=== PATIENT | female | born 1965 | race African-American/Black ===

== ENCOUNTER 2025-08-03 01:48 | Inpatient (IN) | payer OTHER, MEDICARE ==
[~2025-08-03] VITALS: Ht 160 cm; Wt 144.2 kg
[2025-08-03 01:50] VITALS: O2SAT 100
[2025-08-03] MEDS: ACETAMINOPHEN 1000MG/100ML 100 ML IV ONE (02:53)
[2025-08-03] MEDS: ONDANSETRON HCL 4MG/2ML INJ IV ONE (02:53)
[2025-08-03] MEDS: MAGNESIUM/ALUMINUM HYDROXIDE/SIMETHICONE 30ML UDC PO ONE (02:53)
[2025-08-03] MEDS: SODIUM CHLORIDE 0.9% 1,000 ML IV ONE (02:54)
[2025-08-03] MEDS: VISCOUS LIDOCAINE 2% 15 ML UDC MM ONE (02:54)
[2025-08-03 03:17] LABS: BASOPHILS % 0.4 % (0.0-2.0); EOSINOPHILS % 0.0 % (0.0-5.0); HEMATOCRIT. 39.5 % (36.0-48.0); HEMOGLOBIN. 12.6 g/dL (12.0-16.0); LYMPHOCYTES % 7.1 % (20.0-50.0); MEAN PLATELET VOLUME 7.7 fl (7.4-10.4); MONOCYTES % 2.7 % (2.0-8.0); NEUTROPHILS % 89.8 % (40.0-76.0); PLATELET 292 x1000/uL (130-400); RED BLOOD CELL COUNT 4.88 mill/uL (4.2-5.4); RED CELL DISTRIBUTION WIDTH 15.7 % (11.6-14.6)
[2025-08-03 03:26] LABS: CREATININE 0.9 mg/dL (0.6-1.0); HCG SCREEN NEGATIVE; UREA NITROGEN BLOOD 14 mg/dL (9-23)
[2025-08-03 03:28] LABS: ASPARTATE AMINOTRANSFERASE 18 IU/L (<34); BILIRUBIN DIRECT 0.2 mg/dL (<=3.0); BILIRUBIN TOTAL 0.8 mg/dL (0.1-1.0); PROTEIN TOTAL 7.7 g/dL (6.0-8.3)
[2025-08-03] MEDS: MORPHINE SULFATE 4 MG/ML INJ (FOR IV/IM USE) IV NR (03:41)
[2025-08-03 03:46] LABS: CLARITY URINE CLOUDY (CLEAR); COLOR URINE YELLOW (YELLOW); GLUCOSE URINE NEGATIVE (NEGATIVE); KETONES URINE NEGATIVE (NEGATIVE); LEUKOCYTE ESTERASE URINE NEGATIVE (NEGATIVE); NITRITE URINE NEGATIVE (NEGATIVE); OCCULT BLOOD URINE NEGATIVE (NEGATIVE); PH URINE 8.0 (4.5-8.0); PROTEIN URINE TRACE (NEGATIVE); SPECIFIC GRAVITY URINE 1.023 (1.005-1.030); UROBILINOGEN URINE 1.0 E.U./dL (0.2-1.0)
[2025-08-03] MEDS: IOHEXOL-300 100 ML BOTTLE ONE (04:30)
[2025-08-03 04:46] LABS: *AMPHETAMINES SCREEN URINE NEGATIVE (NEGATIVE)
[2025-08-03 04:47] LABS: *BARBITURATES SCREEN URINE NEGATIVE (NEGATIVE); *BENZODIAZEPINES SCREEN URINE NEGATIVE (NEGATIVE); *COCAINE SCREEN URINE NEGATIVE (NEGATIVE); CANNABINOID URINE SCREEN PRESUMPTIVE POSITIVE (NEGATIVE); ECSTASY MDMA SCREEN URINE NEGATIVE (NEGATIVE); METHADONE URINE SCREEN NEGATIVE (NEGATIVE); OPIATES URINE SCREEN NEGATIVE (NEGATIVE); PHENCYCLIDINE URINE SCREEN NEGATIVE (NEGATIVE)
[2025-08-03] MEDS ORDERED: HYDRALAZINE 20MG/ML VIAL IV NR (05:00)
[2025-08-03] MEDS ORDERED: VANCOMYCIN 1G PREMIX 200 ML IV ONE (05:00)
[2025-08-03] MEDS: PIPERACILLIN/TAZO 3.375G/50ML 50 ML IV ONE (05:28)
[2025-08-03 05:45] VITALS: BP 113/77; PULSE 63; RESP 20; TEMP 36.9; TEMP 36.974; O2SAT 98
[2025-08-03 05:45] LABS: BACTERIA URINE 2+; RBC URINE NONE SEEN /hpf (0-2); SQUAMOUS EPITHELIAL CELL URINE 3+ /lpf (RARE/1+); WBC URINE 0-2 /hpf (0-2)
[2025-08-03] MEDS ORDERED: GABA800T97 PO (06:37)
[2025-08-03] MEDS ORDERED: ATOR40TA70 PO (06:37)
[2025-08-03] MEDS ORDERED: AMIT25TA21 PO (06:37)
[2025-08-03] MEDS ORDERED: LOSA50TA41 PO (06:37)
[2025-08-03] MEDS ORDERED: METF-414 PO (06:37)
[2025-08-03] MEDS ORDERED: BACL20TA PO (06:37)
[2025-08-03] MEDS ORDERED: ACET-2708 MT (06:38)
[2025-08-03] MEDS ORDERED: ASPI-1497 PO (06:38)
[2025-08-03 08:00] VITALS: BP 148/89; PULSE 86; RESP 20; TEMP 36.7; O2SAT 100
[2025-08-03] MEDS ORDERED: ONDANSETRON HCL 4MG/2ML INJ IV PRN (09:00)
[2025-08-03] MEDS ORDERED: NALOXONE HCL 0.4MG/ML VIAL IV PRN (09:30)
[2025-08-03] MEDS: HYDROCODONE/ACETAMINOPHEN 5/325MG TABLET PO PRN (09:47)
[2025-08-03 12:00] VITALS: BP 115/76; PULSE 66; RESP 18; TEMP 36.4; O2SAT 95
[2025-08-03] MEDS: PIPERACILLIN/TAZO 3.375G/50ML 50 ML IV SCH (13:39)
[2025-08-03 16:00] VITALS: BP 120/74; PULSE 76; RESP 16; TEMP 36.7; O2SAT 99
[2025-08-03] MEDS ORDERED: HYDROCODONE/ACETAMINOPHEN 5/325MG TABLET PO PRN (17:30)
[2025-08-03 20:00] VITALS: BP 129/66; PULSE 70; RESP 18; TEMP 36.4; O2SAT 96
[2025-08-04] VITALS: BP 132/52; PULSE 77; RESP 18; TEMP 37.2; O2SAT 97
[2025-08-04 04:00] VITALS: BP 130/70; PULSE 69; RESP 18; TEMP 36.8; O2SAT 99
[2025-08-04] MEDS ORDERED: LEVO750T68 MT (09:15)
[2025-08-04] MEDS ORDERED: METR-167 MT (09:15)
[2025-08-04 20:00] VITALS: BP 116/72; PULSE 76; RESP 19; TEMP 36.4; O2SAT 96
[2025-08-04] MEDS: ENOXAPARIN 40MG/0.4ML SYR SUBCUT SCH (21:00)
[2025-08-05 04:37] VITALS: BP 114/58; PULSE 75; RESP 18; TEMP 36.8; O2SAT 98
[2025-08-05 08:00] VITALS: BP 116/53; PULSE 62; RESP 17; TEMP 36.1; O2SAT 100
[2025-08-05 09:37] VITALS: BP 116/53; PULSE 62; RESP 16; TEMP 97.4
== END 2025-08-05 10:38 | disposition home or self-care (01) | DRG 392 ==
LOC: ER 01:48 → 7WST 04:49 → EDBEDREQTM 05:04 → EDBEDREQ 05:04 → CANRESERV 05:06 → ENRESERV 05:06 → 6EST 20:15
PROVIDERS: ADMIT Internal Medicine; ATTEND Internal Medicine
DX: K57.20 Diverticulitis of large intestine with perforation and abscess without bleeding (principal); Z68.43 Body mass index [BMI] 50.0-59.9, adult; I10 Essential (primary) hypertension; E66.01 Morbid (severe) obesity due to excess calories; E78.00 Pure hypercholesterolemia, unspecified; E78.5 Hyperlipidemia, unspecified; Z79.899 Other long term (current) drug therapy
CPT/HCPCS: 36415; 74177; 80048; 80076; 80305; 80320; 81003; 83036; 83605; 84703; 85025; 93005; 99285; A4606; J1650; J2270; J2405; J2543; J7030; Q9967; G0480; J0131